=== PATIENT | male | born 2000 | race Caucasian/White ===

== ENCOUNTER 2018-03-13 04:51 | Emergency (ER) | payer OTHER ==
--- NOTE | 2018-03-13 04:58 | EDPHY ---
H & P Time Seen by Provider: 03/13/18 04:58 HPI/ROS: HPI CHIEF COMPLAINT: Possible allergic reaction HISTORY OF PRESENT ILLNESS: This is a 18-year-old male, presents to the emergency room stating that he may be having a possible allergic reaction. Patient states he has been up all night he did have alcohol earlier in the evening. States he took an herbal tea to go to sleep and relax him approximately an hour later he states he felt his throat closing, felt anxious. This prompted come the emergency room. He arrives to emergency room in no acute distress resting comfortably. No stridor no trouble breathing no trouble swallowing. No urticaria. No GI upset. Patient denies any history of allergies allergic reaction Past Medical History: Denies medical history Past Surgical History: Denies surgical history Social History: Denies drugs alcohol tobacco. Family History: Noncontributory ROS REVIEW OF SYSTEMS: 10 Systems were reviewed and negative with the exception of the elements mentioned in the history of present illness. Exam Constitutional triage nursing summary reviewed, vital signs reviewed, awake/ alert. Eyes normal conjunctivae and sclera, EOMI, PERRLA. HENT normal inspection, atraumatic, moist mucus membranes, no epistaxis, neck supple/ no meningismus, no raccoon eyes. Respiratory clear to auscultation bilaterally, normal breath sounds, no respiratory distress, no wheezing. Cardiovascular rate normal, regular rhythm, no murmur, no edema, distal pulses normal. Gastrointestinal soft, non-tender, no rebound, no guarding, normal bowel sounds, no distension, no pulsatile mass. Genitourinary no CVA tenderness. Musculoskeletal no midline vertebral tenderness, full range of motion, no calf swelling, no tenderness of extremities, no meningismus, good pulses, neurovascularly intact. Skin pink, warm, & dry, no rash, skin atraumatic. Neurologic awake, alert and oriented x 3, AAOx3, moves all 4 extremities equally, motor intact, sensory intact, CN II-XII intact, normal cerebellar, normal vision, normal speech. Psychiatric normal mood/affect. Heme/Lymph/Immune no lymphadenopathy. Differential Diagnosis: Includes but is not limited to in a particular order: Allergic reaction, anxiety, anaphylaxis, severe allergy Medical Decision Making: Plan for this patient IV establishment IV fluid bolus , IV Pepcid IV Solu-Medrol and IV Benadryl and observed. Watch for further reaction. Re-evaluation: 0700: Re-examination at this time patient resting comfortably no acute distress. This not having trouble breathing or swallowing. Has no complaints. In fact he is resting comfortably. No further urticaria no further progression of allergic reaction Patient has done well here with IV fluids IV Benadryl IV Pepcid and IV Solu- Medrol I have discussed return precautions with the patient understands return emergency room if develops worsening symptoms. Return to the ER for worsening symptoms includes trouble breathing, trouble swelling, rash further allergic reaction symptoms. Recommend prednisone, Benadryl, Pepcid for the next 3 days Patient is comfortable this discharge planning. Source: Patient Constitutional: Initial Vital Signs Temperature (C) 36.9 C 03/13/18 05:02 Heart Rate 99 03/13/18 05:02 Respiratory Rate 18 03/13/18 05:02 Blood Pressure 155/83 H 03/13/18 05:02 O2 Sat (%) 100 03/13/18 05:02 O2 Delivery Mode Room Air Allergies/Adverse Reactions: No Known Allergies Allergy (Unverified 03/13/18 05:05) Home Medications: Medication Instructions Recorded Famotidine [Pepcid 20 MG (*)] 20 mg PO BID #6 tab 03/13/18 diphenhydrAMINE [Benadryl 25 MG 25 mg PO BID #6 tab 03/13/18 (*)] predniSONE 60 mg PO DAILY #9 tab 03/13/18 Medical Decision Making - Data Points Laboratory Results: Laboratory Results 03/13/18 05:27 03/13/18 05:27 03/13/18 03/13/18 05:27 05:27 WBC 7.46 10^3/uL 10^3/uL (3.80-9.50) RBC 4.45 10^6/uL 10^6/uL (4.40-6.38) Hgb 14.5 g/dL g/dL (13.7-17.5) Hct 41.1 % % (40.0-51.0) MCV 92.4 fL fL (81.5-99.8) MCH 32.6 pg pg (27.9-34.1) MCHC 35.3 g/dL g/dL (32.4-36.7) RDW 11.9 % % (11.5-15.2) Plt Count 231 10^3/uL 10^3/uL (150-400) MPV 10.1 fL fL (8.7-11.7) Neut % (Auto) 37.3 % L % (39.3-74.2) Lymph % (Auto) 48.7 % H % (15.0-45.0) [place]oup % (Auto) 11.8 % % (4.5-13.0) Eos % (Auto) 0.9 % % (0.6-7.6) Baso % (Auto) 0.9 % % (0.3-1.7) Nucleat RBC Rel Count 0.0 % % (0.0-0.2) Absolute Neuts (auto) 2.78 10^3/uL 10^3/uL (1.70-6.50) Absolute Lymphs (auto) 3.63 10^3/uL H 10^3/uL (1.00-3.00) Absolute Monos (auto) 0.88 10^3/uL H 10^3/uL (0.30-0.80) Absolute Eos (auto) 0.07 10^3/uL 10^3/uL (0.03-0.40) Absolute Basos (auto) 0.07 10^3/uL 10^3/uL (0.02-0.10) Absolute Nucleated RBC 0.00 10^3/uL 10^3/uL (0-0.01) Immature Gran % 0.4 % % (0.0-1.1) Immature Gran # 0.03 10^3/uL 10^3/uL (0.00-0.10) Sodium 138 mEq/L mEq/L (135-145) Potassium 3.5 mEq/L mEq/L (3.5-5.2) Chloride 108 mEq/L mEq/L (97-110) Carbon Dioxide 22 mEq/l mEq/l (22-31) Anion Gap 8 mEq/L mEq/L (6-14) BUN 10 mg/dL mg/dL (7-23) Creatinine 0.7 mg/dL mg/dL (0.7-1.3) Estimated GFR > 60 Glucose 91 mg/dL mg/dL (70-100) Calcium 8.6 mg/dL mg/dL (8.5-10.4) Medications Given: Discontinued Medications Diphenhydramine HCl (Benadryl Injection) 25 mg IVP EDNOW ONE Stop: 03/13/18 05:04 Last Admin: 03/13/18 05:11 Dose: 25 mg Famotidine (Pepcid) 20 mg IVP EDNOW ONE Stop: 03/13/18 05:04 Last Admin: 03/13/18 05:11 Dose: 20 mg Sodium Chloride (Ns) 1,000 mls @ 0 mls/hr IV EDNOW ONE; Wide Open PRN Reason: Protocol Stop: 03/13/18 05:04 Last Admin: 03/13/18 05:10 Dose: 1,000 mls Methylprednisolone Sodium Succinate (Solu-Medrol) 125 mg IVP EDNOW ONE Stop: 03/13/18 05:04 Last Admin: 03/13/18 05:11 Dose: 125 mg Departure - Departure Disposition: Home, Routine, Self-Care Clinical Impression: Allergic reaction Qualifiers: Encounter type: initial encounter Qualified Code(s): T78.40XA - Allergy, unspecified, initial encounter Condition: Good Instructions: Anaphylaxis (ED), Allergies (ED) Additional Instructions: 1. Return emergency room if you have further symptoms or worsening symptoms this includes trouble swallowing, trouble breathing or further allergic reaction symptoms. Referrals: NONE *PRIMARY CARE P,. [Primary Care Provider] - As per Instructions Prescriptions: diphenhydrAMINE [Benadryl 25 MG (*)] 25 mg PO BID #6 tab Famotidine [Pepcid 20 MG (*)] 20 mg PO BID #6 tab predniSONE 60 mg PO DAILY #9 tab
[2018-03-13] MEDS ORDERED: methylPREDNISolone SOD SUCC 125 MG/2 ML VIAL IVP ONE (05:03)
[2018-03-13] MEDS ORDERED: FAMOTIDINE 20 MG/2 ML SDV IVP ONE (05:03)
[2018-03-13] MEDS ORDERED: NS 1,000 ML IV ONE (05:03)
[2018-03-13 05:38] LABS: PLATELET COUNT 231 10^3/uL (150-400)
[2018-03-13 08:42] VITALS: BP 122/74
== END 2018-03-13 08:52 | disposition home or self-care (01) ==
DX: T78.40XA Allergy, unspecified, initial encounter (principal); E86.9 Volume depletion, unspecified
CPT/HCPCS: 96374; J1200; J2930